=== PATIENT | female | born 1980 | race Caucasian/White ===

== ENCOUNTER → 2017-09-09 10:49 | Outpatient (CLI) | payer OTHER, SELFPAY ==
[2017-09-13 11:16] LABS: HPV APTIMA, High Risk Negative (Negative)
== END ==
PROVIDERS: Visit Provider Obstetrics & Gynecology
DX: Z12.4 Encounter for screening for malignant neoplasm of cervix (principal)
CPT/HCPCS: 88175; G0145

== ENCOUNTER 2021-07-09 13:35 | Outpatient (CLI) | payer OTHER, SELFPAY ==
[2021-07-14 13:30] LABS: HPV APTIMA, High Risk Negative (Negative)
== END 2021-07-09 23:59 | disposition short-term general hospital (02) ==
LOC: LABSPEC 13:37
PROVIDERS: Visit Provider Obstetrics & Gynecology
DX: Z12.4 Encounter for screening for malignant neoplasm of cervix (principal)
CPT/HCPCS: 87624; 88175; G0145